=== PATIENT | male | born 1960 | race Caucasian/White ===

== ENCOUNTER 2018-07-16 14:25 | Emergency (ER) | payer OTHER ==
[2018-07-16] MEDS ORDERED: ONDANSETRON 4 MG/2 ML VIAL IVP PRN (15:13)
[2018-07-16] MEDS ORDERED: NS 1,000 ML IV ONE (15:13)
--- NOTE | 2018-07-16 15:26 | EDPHY ---
H & P Time Seen by Provider: 07/16/18 14:49 HPI/ROS: CHIEF COMPLAINT: Nausea, vomiting HISTORY OF PRESENT ILLNESS: Patient states yesterday evening he was "not feeling like a million bucks". An around 11:00 a.m. Last night he started vomiting. He states he vomited "all night long". Vomiting. Around 6:00 a.m.. Since that time he has been hot and cold. Also complains of all over body aches. He states he is slightly better now but not much. He has had no further vomiting but still feels a little bit of nausea. He has only had a banana and a glass of water today. He denies diarrhea. He did have some stool today. He states that he has "a little" abdominal pain that is diffuse. He states this episode reminds him of a stress reaction he had 30 years ago and he states he is under a lot of stress with his daughter with mental health issues who lives out of state recently having a baby. Additionally he states that Tuesday night he felt short of breath secondary to an "anxiety attack". No shortness of breath currently. No chest pain. REVIEW OF SYSTEMS: Constitutional: No fever, some chills. Eyes: No discharge. ENT: No sore throat. Cardiovascular: No chest pain, no palpitations. Respiratory: No cough, no shortness of breath currently. Gastrointestinal: Per HPI. Genitourinary: No dysuria. Musculoskeletal: No back pain. Skin: No rashes. Neurological: No headache. General Appearance: Alert, no distress. Eyes: Pupils equal and round no pallor or injection. ENT, Mouth: Mucous membranes moist. Respiratory: There are no retractions, lungs are clear to auscultation. Cardiovascular: Regular rate and rhythm. Normal femoral pulses. No edema. Gastrointestinal: Abdomen is soft and nontender, no masses, bowel sounds normal. Neurological: Awake, alert, normal cranial nerves. Normal movement at extremities x4. Skin: Warm and dry, no rashes. Musculoskeletal: Neck is supple nontender. Extremities are symmetrical, full range of motion, no edema. Psychiatric: Patient is oriented X 3, there is no agitation. Medical/surgical history: History of depression, surgeries include right knee, appendectomy. Social history: Uses alcohol. Denies tobacco or drugs. Recent travel to [place] and [place]. Smoking Status: Never smoked Constitutional: Initial Vital Signs Temperature (C) 36.8 C 07/16/18 14:35 Heart Rate 71 07/16/18 14:35 Respiratory Rate 16 07/16/18 14:35 Blood Pressure 134/77 H 07/16/18 14:35 O2 Sat (%) 94 07/16/18 14:35 O2 Delivery Mode Room Air Allergies/Adverse Reactions: Sulfa (Sulfonamide Antibiotics) Allergy (Intermediate, Verified 07/16/18 14:40) Hives Home Medications: Medication Instructions Recorded FLUoxetine 07/16/18 Medical Decision Making ED Course/Re-evaluation: 3:45 p.m. Recheck on patient after IV started. Resting comfortably. No new complaints. 4:15 p.m. patient taking sips of fluids. No longer nauseous, no abdominal pain. Discussed oral rehydration at home, slow advance of diet, indications to return. Differential Diagnosis: Differential diagnosis includes but is not limited to gastroenteritis, other vomiting illness, cholecystitis, peptic ulcer disease, anxiety reaction. After evaluation suspect patient with food-borne vomiting illness but no diarrhea to suggest true gastroenteritis. No episodes of vomiting since 6:00 a.m. this morning. Patient with benign abdominal exam. [place] better after fluids. Electrolytes normal other than slightly low potassium. Oral potassium replacement given. Will be sent home with Zofran and instructions for continued clear fluids for oral rehydration and slow advance diet. Return precautions discussed. Stable for discharge. - Data Points Laboratory Results: 07/16/18 07/16/18 16:16 15:49 POC Sodium 140 mEq/L mEq/L (135-145) POC Potassium 3.1 mEq/L L mEq/L 3.0 mEq/L L mEq/L (3.3-5.0) (3.3-5.0) POC Chloride 105.0 mEq/L mEq/L (97-110) POC Total CO2 24 mEq/L mEq/L (22-31) POC BUN 15 mg/dL mg/dL (7-23) POC Creatinine 1.2 mg/dL mg/dL (0.7-1.3) POC Glucose 109 mg/dL H mg/dL (70-100) POC Calcium 9.0 mg/dL mg/dL (8.5-10.4) Medications Given: Lorazepam (Ativan Injection) 0.5 mg IVP Q2H PRN PRN Reason: Anxiety, Unable to Take PO Last Admin: 07/16/18 15:57 Dose: 0.5 mg Ondansetron HCl (Zofran) 4 mg IVP Q15M PRN PRN Reason: Nausea/Vomiting, Can't Take PO Last Admin: 07/16/18 15:39 Dose: 4 mg Discontinued Medications Sodium Chloride (Ns) 1,000 mls @ 0 mls/hr IV ONCE ONE; Wide Open PRN Reason: Protocol Stop: 07/16/18 15:14 Last Admin: 07/16/18 15:25 Dose: 1,000 mls Point of Care Test Results: Chemistry 07/16/18 07/16/18 16:16 15:49 POC Sodium 140 mEq/L mEq/L (135-145) POC Potassium 3.1 mEq/L L mEq/L 3.0 mEq/L L mEq/L (3.3-5.0) (3.3-5.0) POC Chloride 105.0 mEq/L mEq/L (97-110) POC Total CO2 24 mEq/L mEq/L (22-31) POC BUN 15 mg/dL mg/dL (7-23) POC Creatinine 1.2 mg/dL mg/dL (0.7-1.3) POC Glucose 109 mg/dL H mg/dL (70-100) POC Calcium 9.0 mg/dL mg/dL (8.5-10.4) Departure - Departure Clinical Impression: Vomiting Qualifiers: Vomiting type: unspecified Vomiting Intractability: non-intractable Nausea presence: with nausea Qualified Code(s): R11.2 - Nausea with vomiting, unspecified Condition: Fair Instructions: Acute Nausea and Vomiting (ED) Additional Instructions: Continue with clear liquids only today. Small frequent sips of Gatorade mixed half and half with water is a good option. Advance diet slowly and avoid dairy products until back to normal. See her primary care physician for recheck of potassium in approximately 1 week. Return to the emergency department if you develops worsening symptoms including intractable vomiting, increased abdominal pain or other concerns. Referrals: Nacho Herrera MD [Primary Care Provider] - As per Instructions
[2018-07-16] MEDS: LORazepam 2 MG/ML INJ IVP PRN ×2 (15:41→15:57)
[2018-07-16] MEDS ORDERED: ONDANSETRON 4MG PREPACK#2 BTL TAKEHOME ONE (16:18)
[2018-07-16] MEDS ORDERED: POTASSIUM CL 10 MEQ TAB PO ONE (16:19)
[2018-07-16 16:45] VITALS: BP 127/66
== END 2018-07-16 16:50 | disposition home or self-care (01) ==
LOC: CED 14:25
DX: R11.2 Nausea with vomiting, unspecified (principal); E86.9 Volume depletion, unspecified; Z88.2 Allergy status to sulfonamides
CPT/HCPCS: 80048-ER; 84132-PO; 87400-QW-ER; 96361-ER; 96374-ER; 96375-ER; 99284-ER; J2060; J2405